=== PATIENT | male | born 1995 | race Caucasian/White ===

== ENCOUNTER 2017-01-15 20:15 | Emergency (ER) | payer OTHER ==
[~2017-01-15] VITALS: Ht 175.3 cm; Wt 66.0 kg
[2017-01-15 20:25] VITALS: BP 118/66; PULSE 58; RESP 16; TEMP 98.6; O2SAT 100
--- NOTE | 2017-01-15 21:42 | PD ---
HPI Chief Complaint: Skin Problem Time Seen by Provider: 21:30 Travel History International Travel<30 days: No Contact w/Intl Traveler<30days: No Traveled to known affect area: No History of Present Illness HPI 21-year-old male presents to the emergency room for evaluation of suture removal. Patient had 3 sutures placed in his right third finger 7 days ago. 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 He [place] care [place]. They updated his tetanus. Denies recent the pain, drainage, or evidence of infection. PFS Past Medical History Medical History: Denies Significant Hx Diminished Hearing: No Tetanus Vaccination: < 5 Years Influenza Vaccination: No ?: Not Past Surgical History Surgical History: No Previous Surgery Social History Alcohol Use: No Tobacco Use: No Substance Use: No Review of Systems Except as stated in HPI: all other systems reviewed are Neg Physical Exam Narrative GENERAL: Well-nourished, well-developed male in no acute distress. Afebrile. Ambulatory. SKIN: Focused skin assessment warm/dry. There is a 1.5 centimeter healing laceration on the right third distal phalanx with 3 intact sutures. No drainage. No lymphangitis. No edema or erythema. HEAD: Normocephalic. EYES: No scleral icterus. No injection or drainage. NECK: Supple, trachea midline. No JVD or lymphadenopathy. CARDIOVASCULAR: Regular rate and rhythm without murmurs, gallops, or rubs. RESPIRATORY: Breath sounds equal bilaterally. No accessory muscle use. MUSCULOSKELETAL: No cyanosis, or edema. Full range of motion of the hand. Data Data Last Documented VS Vital Signs Date Time Temp Pulse Resp B/P Pulse Ox O2 Delivery O2 Flow Rate FiO2 01/15/17 20:25 98.6 58 16 118/66 100 MDM Medical Decision Making Medical Screen Exam Complete: Yes Emergency Medical Condition: Yes Medical Record Reviewed: Yes Differential Diagnosis Stitches removal, wound infection, abrasion Narrative Course 21-year-old male presents to the emergency room for evaluation of suture removal. Patient had 3 sutures placed in his right third finger 7 days ago at an urgent [place]. Denies any issues since then. Physical exam reveals well approximated laceration with 3 intact sutures. No evidence of infection. Sutures are removed without difficulty. Patient discharged with wound care instructions and told to follow-up with a primary care physician or return for worsening symptoms. Diagnosis Primary Impression: Visit for suture removal Referrals: Primary Care Physician Patient Instructions: General Instructions, Stitches Removal (ED) Additional Instructions: Keep wound clean and dry. Apply triple antibiotic ointment until scab falls off. Wash with soap and water after leaving ocean water. Med/Other Pt SpecificInfo: Prescription(s) given Disposition: 01 DISCHARGE HOME Condition: Stable Kristal Carroll Jan 15, 2017 21:42
== END 2017-01-15 21:57 | disposition home or self-care (01) ==
LOC: PHEFT 20:15
DX: S61.212D Laceration without foreign body of right middle finger without damage to nail, subsequent encounter (principal); W45.8XXD Other foreign body or object entering through skin, subsequent encounter; Z48.02 Encounter for removal of sutures
CPT/HCPCS: 99281